=== PATIENT | female | born 1940 | race Caucasian/White ===

== ENCOUNTER → 2017-05-07 | Outpatient (CLI) | payer OTHER ==
[~2017-05-07] MED LIST: NS 100 ML IV 100 ML IV ONE
--- NOTE | 2017-05-12 08:10 | CT ---
HISTORY: Palpable lump left side of neck, marked with a BB Study: CT soft tissue neck with contrast Comparison: None Technique: Multiple images of the neck were obtained after the administration of IV contrast. Dose r eduction techniques including Automated Exposure Control (AEC) and adjustment of mA and kV were utili zed. Findings: The visualized intracranial structures appear normal. Multilevel spondylosis and facet arthropathy is present throughout the cervical spine with varying degrees of foraminal stenosis bilaterally most se hanny at C3-C4, C4-C5, and C6-C7. The facial bones appear grossly intact. Mild mucosal thickening seen in the maxillary sinuses. The lung apices are clear. The aerodigestive structures appear normal. The prevertebral soft tissues and paraspinal soft tissues are unremarkable. The epiglottis and laryngeal structures appear normal. No pathologically enlarged lymph nodes are identified. A metallic BB is placed in the region of the palpable abnormality in the lower anterior left neck. Subjacent to the marker the left common carotid artery is seen coursing ant erior to the thyroid cartilage, in an unusual anatomic position but likely representing a normal vari ant. No significant carotid stenosis is seen. No other masses are seen in the region of the BB. No abnormal enhancement or mass identified. The carotid, parotid, parapharyngeal, applied marine physics professor, and ret ropharyngeal spaces appear normal. The pharyngeal mucosal surfaces appear grossly normal. Normal appe arance of the parotid and submandibular glands. The thyroid gland appears normal. IMPRESSION: 1. No mass or adenopathy is seen in the region of the palpable abnormality. It is noted the patient's left common carotid artery courses anterior to the thyroid cartilage in this region (likely represen ting an anatomic variant) and could account for palpable abnormality. Correlate with physical exam fi ndings. 2. 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 Reported By:
== END | disposition home or self-care (01) | DRG 607 ==
LOC: RAD 09:29
PROVIDERS: ATTEND Internal Medicine
DX: R22.1 Localized swelling, mass and lump, neck (principal); M50.30 Other cervical disc degeneration, unspecified cervical region
CPT/HCPCS: 70491; A4222